=== PATIENT | female | born 1970 | race Caucasian/White ===

== ENCOUNTER 2016-10-28 14:34 | Emergency (ER) | payer BC ==
[2016-10-28 14:41] VITALS: BP 132/65; PULSE 82; TEMP 98.2; BMI 41.1
[2016-10-28] MEDS ORDERED: KETOROLAC TROMETHAMINE 60 MG/2 ML VIAL ONE (15:48)
[2016-10-28] MEDS ORDERED: KETOROLAC TROMETHAMINE 60 MG/2 ML VIAL IM ONE (15:51)
--- NOTE | 2016-10-28 15:56 | PDOC ---
[id number] 4d RIGHT KNEE PAIN Time Seen by Provider: 10/28/16 15:27 History Source: Patient Exam Limitations: No Limitations - History of Present Illness Initial Comments: 10/28/16 15:51 Patient with known meniscus injury, [place] children, missed a step, and twisted same right knee. Since that time has had significant worsening and pain, some swelling, and worries that meniscus has worsened. Attends a pain management program where she received steroid injections for chronic back issues. They have evaluated her knee in the past and documented a slight meniscus tear approximately 2 years ago. 10/28/16 17:54 Occurred: reports: yesterday Severity: reports: mild, moderate Pain Location: reports: lower extremity (left knee) Modifying Factors: improves with: None Associated Symptoms (Fall): denies symptoms Past History - Travel Traveled outside of the country in the last 30 days: No Close contact w/someone who was outside of country & ill: No - Past Medical History Allergies/Adverse Reactions: Allergies Allergy/AdvReac Type Severity Reaction Status Date / Time azithromycin [From Zithromax] Allergy itchy mouth Verified 10/28/16 14:41 cefprozil [From Cefzil] Allergy Verified 10/28/16 14:41 Home Medications: Ambulatory Orders NK [No Known Home Medication] 05/07/16 Cardiac Disorders: Yes (leaky valve) - Surgical History Abdominal Surgery: Yes - Immunization History Immunization Up to Date: Yes (FLU ) - Psycho/Social/Smoking Cessation Hx Anxiety: No Suicidal Ideation: No Smoking Status: No Smoking History: Never smoked Have you smoked in the past 12 months: No Number of Cigarettes Smoked Daily: 0 Information on smoking cessation initiated: No Hx Alcohol Use: No Drug/Substance Use Hx: No Substance Use Type: None Trauma Specific PMHX - Complaint Specific PMHX Arthritis: No Back Injury: No Neck Injury: No Review of Systems - Review of Systems Able to Perform ROS?: Yes Is the patient limited Portuguese proficient: Yes Constitutional: Yes: Symptoms Reported, See HPI, Malaise HEENTM: Yes: Symptoms Reported Respiratory: No: Symptoms reported Musculoskeletal: Yes: Symptoms Reported, See HPI All Other Systems: Reviewed and Negative *Physical Exam - Vital Signs Last Vital Signs Temp Pulse Resp BP Pulse Ox 98.2 F 82 18 132/65 98 10/28/16 14:39 10/28/16 14:39 10/28/16 14:39 10/28/16 14:39 10/28/16 14:39 - Physical Exam General Appearance: Yes: Nourished, Appropriately Dressed, Apparent Distress HEENT: positive: MAYO, Normal ENT Inspection, TMs Normal Neck: positive: Tender, Supple Respiratory/Chest: positive: Lungs Clear Gastrointestinal/Abdominal: positive: Soft Musculoskeletal: positive: Normal Inspection, Decreased Range of Motion Extremity: positive: Normal Capillary Refill, Swelling (tenderness reproduced to medial and lateral aspect , no crepitus or step-offs, patella is mobile but is tender with movement. Flexion and extension is limited secondary to swelling and pain). 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 for further evaluation and probable soft tissue studies to reevaluate meniscus *DC/Admit/Observation/Transfer Diagnosis at time of Disposition: Strain of left knee Qualifiers: Encounter type: initial encounter Qualified Code(s): S86.912A - Strain of unspecified muscle(s) and tendon(s) at lower leg level, left leg, initial encounter - Discharge Dispostion Disposition: HOME Condition at time of disposition: Stable Admit: No - Referrals Referrals: Griselda Buckley [Primary Care Provider] - Oswaldo Lam MD [Staff Physician] - - Patient Instructions Printed Discharge Instructions: DI for Knee Sprain Additional Instructions: Rest, ice to area on and off for 15 minutes 4-6 times a day Avoid heavy lifting or exercise until pain and swelling is resolved or until further directed Keep area highly elevated to reduce swelling Use splints/Calixto wrap as directed Followup with orthopedist in one to 2 days if not improving, if significantly improved may wait one week for followup with orthopedist May use ibuprofen 2-200 mg tablets every 6 hours as needed for pain
== END 2016-10-28 16:03 | disposition home or self-care (01) ==
LOC: JERFT 14:34
PROC: 2W3MXYZ Immobilization of Left Lower Extremity using Other Device (ICD-10-PCS; principal; 2016-10-28)
DX: S86.912A Strain of unspecified muscle(s) and tendon(s) at lower leg level, left leg, initial encounter (principal); X50.1XXA Overexertion from prolonged static or awkward postures, initial encounter; Y92.538 Other ambulatory health services establishments as the place of occurrence of the external cause
CPT/HCPCS: 99281-25

== ENCOUNTER 2018-07-17 18:23 | Emergency (ER) | payer BC ==
--- NOTE | 2018-07-17 18:29 | PDOC ---
Rapid Medical Evaluation Time Seen by Provider: 07/17/18 18:27 Medical Evaluation: Allergies Allergy/AdvReac Type Severity Reaction Status Date / Time azithromycin [From Zithromax] Allergy itchy mouth Verified 10/28/16 14:41 cefprozil [From Cefzil] Allergy Verified 10/28/16 14:41 07/17/18 18:28 Pt presents to the ED for one day of R shoulder pain after trying to close a bathroom window yesterday. Pt is R hand dominant. Exam: Ambulatory, moving all extremities Orders: Nothing Pt to proceed to ED for further evaluation Discharge Disposition - Diagnosis Right shoulder pain - Referrals - Patient Instructions - Post Discharge Activity
[2018-07-17 18:33] VITALS: BP 135/84; PULSE 72; TEMP 97.7; BMI 44.6
--- NOTE | 2018-07-17 18:54 | PDOC ---
History of Present Illness - General Chief Complaint: Injury Stated Complaint: SHOULDER PAIN Time Seen by Provider: 07/17/18 18:27 - History of Present Illness Initial Comments: 07/17/18 18:49 47-year-old female presents for evaluation of atraumatic onset of right shoulder pain which occurred yesterday after closing a window. No systemic symptoms. No prior problems with the right shoulder. Past History - Past Medical History Allergies/Adverse Reactions: Allergies Allergy/AdvReac Type Severity Reaction Status Date / Time azithromycin [From Zithromax] Allergy itchy mouth Verified 10/28/16 14:41 cefprozil [From Cefzil] Allergy Verified 10/28/16 14:41 Home Medications: Ambulatory Orders NK [No Known Home Medication] 05/07/16 Cardiac Disorders: Yes (leaky valve) COPD: No - Surgical History Abdominal Surgery: Yes - Immunization History Immunization Up to Date: Yes (FLU ) - Suicide/Smoking/Psychosocial Hx Smoking Status: No Smoking History: Never smoked Have you smoked in the past 12 months: No Number of Cigarettes Smoked Daily: 0 Hx Alcohol Use: No Drug/Substance Use Hx: No Substance Use Type: None Review of Systems - Review of Systems Musculoskeletal: Yes: Joint Pain *Physical Exam - Vital Signs Last Vital Signs Temp Pulse Resp BP Pulse Ox 97.7 F 72 18 135/84 99 07/17/18 18:28 07/17/18 18:28 07/17/18 18:28 07/17/18 18:28 07/17/18 18:28 - Physical Exam Comments: 07/17/18 18:50 Right shoulder skin color and temperature are normal range of motion is full with discomfort at terminal abduction and external rotation. 5 out of 5 strength with external rotation and super spinatus isolation. Mildly positive impingement maneuvers negative Spurling maneuver no gross sensorimotor deficits she is neurovascularly intact upper extremity compartments are soft and nontender. Moderate Sedation - Procedure Monitoring Vital Signs: Procedure Monitoring Vital Signs Temperature 97.7 F 07/17/18 18:28 Pulse Rate 72 07/17/18 18:28 Respiratory Rate 18 07/17/18 18:28 Blood Pressure 135/84 07/17/18 18:28 O2 Sat by Pulse Oximetry (%) 99 07/17/18 18:28 *DC/Admit/Observation/Transfer Diagnosis at time of Disposition: Right shoulder pain, Impingement syndrome of right shoulder - Discharge Dispostion Disposition: HOME Condition at time of disposition: Stable Decision to Admit order: No - Referrals Referrals: Griselda Buckley [Primary Care Provider] - Yonis Quevedo MD [Staff Physician] - - Patient Instructions Printed Discharge Instructions: Shoulder Tendinopathy Additional Instructions: Return to the emergency room should symptoms worsen or go unresolved. Please follow-up with orthopedic surgery in 2-3 days for further evaluation and treatment options. Continue your regular medication as scheduled - Post Discharge Activity
== END 2018-07-17 18:58 | disposition home or self-care (01) ==
LOC: JERFT 18:23
DX: M75.41 Impingement syndrome of right shoulder (principal); X50.0XXA Overexertion from strenuous movement or load, initial encounter; Y93.89 Activity, other specified; Y92.89 Other specified places as the place of occurrence of the external cause; Y99.8 Other external cause status
CPT/HCPCS: 99281-25

== ENCOUNTER 2020-09-30 15:13 | Emergency (ER) | payer BC ==
[2020-09-30 15:32] VITALS: BP 123/83; PULSE 86; TEMP 97.8; BMI 42.0
[2020-09-30] MEDS ORDERED: METHOCARBAMOL 500 MG TABLET PO ONE (15:56)
[2020-09-30] MEDS ORDERED: IBUPROFEN 400 MG TABLET (FP) PO ONE ×2 (15:56→15:57)
[2020-09-30] MEDS ORDERED: METHOCARBAMOL 500 MG TABLET ONE (15:57)
== END 2020-09-30 18:53 | disposition home or self-care (01) ==
LOC: JERFT 15:13
DX: M62.831 Muscle spasm of calf (principal); S83.92XA Sprain of unspecified site of left knee, initial encounter
CPT/HCPCS: 73562-TC-LT-FY; 73590-TC-LT-FY; 93971-TC; 99285-25

== ENCOUNTER 2023-06-08 04:15 | Day surgery (SDC) | payer BC ==
[2023-06-07 14:51] VITALS: BMI 46.5
[~2023-06-08 04:15] MED LIST: ACETAMINOPHEN 325 MG TABLET (FP) PO PRN; BSS (NA/CA/MG/K) BALANCED SALT SOLUTION OPHTH SOLN 15 ML BOTTLE OS ONE; BUPIVACAINE HCL/PF 0.75% 10 ML VIAL RB ONE; CHONDROITIN SU A/HYALUR SOD 1 KIT IO ONE; EPINEPHrine/PF 1 MG/1 ML (1:1,000) AMPULE IO ONE; LIDOCAINE HCL 1% PRESERVATIVE FREE - 30ML VIAL IO ONE; LIDOCAINE HCL/PF 2% SDV 5ML VIAL INF ONE; POVIDONE-IODINE 5% OPHTHALMIC PREP 30 ML SOLUTION OS ONE
[2023-06-08 06:52] VITALS: RESP 20
[2023-06-08] MEDS ORDERED: CYCLOPENTOLATE HCL 1% OPHTH SOLN 2 ML BOTTLE ONE (07:10)
[2023-06-08] MEDS ORDERED: OFLOXACIN 0.3% OPHTHALMIC SOLUTION 5 ML BOTTLE ONE (07:10)
[2023-06-08] MEDS ORDERED: KETOROLAC TROMETHAMINE 0.5% EYE DROP 1 DROP DROPS ONE (07:10)
[2023-06-08] MEDS ORDERED: TROPICAMIDE 1% OPHTH SOLN 15 ML BOTTLE ONE (07:10)
[2023-06-08] MEDS ORDERED: PHENYLEPHRINE 2.5% OPTHALMIC DROP 2ML BOTTLE ONE (07:10)
[2023-06-08] MEDS: TROPICAMIDE 1% OPHTH SOLN 15 ML BOTTLE OP SCH ×3 (07:15→07:26)
[2023-06-08] MEDS: OFLOXACIN 0.3% OPHTHALMIC SOLUTION 5 ML BOTTLE OP SCH ×3 (07:15→07:27)
[2023-06-08] MEDS: KETOROLAC TROMETHAMINE 0.5% EYE DROP 1 DROP DROPS OP SCH ×3 (07:15→07:27)
[2023-06-08] MEDS: CYCLOPENTOLATE HCL 1% OPHTH SOLN 2 ML BOTTLE OP SCH ×4 (07:15→07:27)
[2023-06-08] MEDS: PHENYLEPHRINE 2.5% OPHTH SOLN 15 ML BOTTLE OP SCH ×3 (07:15→07:27)
[2023-06-08] MEDS ORDERED: EPINEPHrine/PF 1 MG/1 ML (1:1,000) AMPULE ONE (07:26)
[2023-06-08] MEDS ORDERED: BSS (NA/CA/MG/K) BALANCED SALT SOLUTION OPHTH SOLN 15 ML BOTTLE ONE (07:27)
[2023-06-08] MEDS ORDERED: BUPIVACAINE HCL/PF 0.75% 10 ML VIAL ONE (07:27)
[2023-06-08] MEDS ORDERED: POVIDONE-IODINE 5% OPHTHALMIC PREP 30 ML SOLUTION ONE (07:27)
[2023-06-08] MEDS ORDERED: LIDOCAINE HCL/PF 2% SDV 5ML VIAL ONE (07:27)
[2023-06-08] MEDS ORDERED: LIDOCAINE HCL/PF 1% SDV 5ML VIAL ONE (07:41)
[2023-06-08] MEDS ORDERED: MIDAZOLAM HCL 2 MG/2 ML SINGLE DOSE VIAL ONE (09:06)
[2023-06-08] MEDS ORDERED: LIDOCAINE HCL/PF 2% SDV 5ML VIAL INF ONE (09:23)
[2023-06-08] MEDS ORDERED: BUPIVACAINE HCL/PF 0.75% 10 ML VIAL RB ONE (09:23)
[2023-06-08] MEDS ORDERED: POVIDONE-IODINE 5% OPHTHALMIC PREP 30 ML SOLUTION OS ONE (09:26)
[2023-06-08] MEDS ORDERED: BSS (NA/CA/MG/K) BALANCED SALT SOLUTION OPHTH SOLN 15 ML BOTTLE OS ONE (09:32)
[2023-06-08] MEDS ORDERED: LIDOCAINE HCL 1% PRESERVATIVE FREE - 30ML VIAL IO ONE (09:32)
[2023-06-08] MEDS ORDERED: CHONDROITIN SU A/HYALUR SOD 1 KIT IO ONE ×2 (09:38)
[2023-06-08] MEDS ORDERED: EPINEPHrine/PF 1 MG/1 ML (1:1,000) AMPULE IO ONE (09:40)
[2023-06-08 11:13] VITALS: BP 101/60; PULSE 63; TEMP 98
== END 2023-06-08 11:34 | disposition home or self-care (01) ==
LOC: JASU-SURG 04:15
PROVIDERS: ATTEND Ophthalmology
PROC: 08RK3JZ Replacement of Left Lens with Synthetic Substitute, Percutaneous Approach (ICD-10-PCS; principal; 2023-06-08 09:00)
DX: H26.9 Unspecified cataract (principal)
CPT/HCPCS: V2632